=== PATIENT | male | born 1945 | race Caucasian/White ===

== ENCOUNTER 2016-05-02 07:08 | Day surgery (SDC) | payer OTHER ==
--- NOTE | ~2016-05-02 | OP ---
Record Of Operation [facility] [address] [place]. [address] NAME: PANDA UGALDE : 47 STATUS : [place] [facility] [place] [id number] AGE: 70 ADM/REG DATE : 05/02/16 MR#: [id number] REPORT SERV DATE: 05/02/16 DICTATED BY: DENNIS MANCERA DATE: 05/02/16 REPORT STATUS : Draft TRANSCRIBED BY: MODL DATE: 05/02/16 DATE OF PROCEDURE: 05/02/2016 PROCEDURE: Bronchoscopy. PREPROCEDURE DIAGNOSIS: Persistent right middle lobe consolidation. POSTPROCEDURE DIAGNOSIS: Persistent right middle lobe consolidation. SPECIMENS: Right middle lobe BAL for culture and cytology, right middle lobe brushing for pathology and right middle lobe transbronchial biopsy for pathology and culture. DESCRIPTION: Informed consent obtained both verbal and written from the patient. Risks and side effects discussed and all questions answered. The patient was brought to the endoscopy suite and sedated via anesthesia with an LMA airway in place. Fiberoptic scope was inserted through the LMA into the LMA with. I was able to see the vocal cords which moved and appeared normal. Lidocaine injected over the cords to reduce coughing. The scope was inserted into the airway to visualize the upper, middle, and lower portions of the trachea which were normal. Lizeth normal. Left and right bronchial trees were surveyed with all segments open of every lobe and they were free from any endobronchial lesion or abnormality. There were no mucosal irregularities. Using fluoroscopy, we directed our attention to the right middle lobe, and got transbronchial biopsies in the right middle lobe, both the medial and lateral segments. Two specimens were sent for culture and for AFB and fungus and the rest were sent for pathology. Right middle lobe brushing also obtained using fluoro for pathology and BAL from the right middle lobe with specimen sent for both culture and cytology. The patient tolerated the procedure well without any significant complications. Nose bleeding less than 5 mL. Postprocedure chest x-ray is pending. The patient will follow up in our office to go over procedure results. CEP/VASILIY Dennis Mancera DO / [id number] CC: DO Miguelangel Norton III, D.O. Chad E. Paxson, DO
[~2016-05-02 07:08] MED LIST: CLA1000 MG PO; CO Q-1030 MG PO; DIOVAN HCT320 MG/25 PO; FLONASE NAS; LIPITOR10 PO; MSM500 MG PO; MULTI-VIT HP PO; PROTEIN POWDER PO; SAMOLINIC PO; SPIRULINA500 MG PO; VITC500 PO; WHEAT GRASS PO; [UNRECOGNIZED DRUG - OTHER] PO; [UNRECOGNIZED DRUG - OTHER] PO; [UNRECOGNIZED DRUG - OTHER] PO
[2016-05-02 07:32] LABS: BASOPHILS 0.3 %; BASOPHILS ABSOLUTE 0.02 10/3/uL (0.0-0.16); EOSINOPHILS 2.9 %; EOSINOPHILS ABSOLUTE 0.22 10/3/uL (0.0-0.53); HEMATOCRIT 48.8 % (40.0-51.0); HEMOGLOBIN 16.6 g/dL (13.6-17.8); IMMATURE GRANULOCYTES 0.3 %; IMMATURE GRANULOCYTES ABSOLUTE 0.02 10/3/uL (0.0-0.11); LYMPHOCYTES 36.4 %; LYMPHOCYTES ABSOLUTE 2.77 10/3/uL (0.67-4.30); MEAN CORPUSCULAR HEMOGLOB 30.7 pg (26.0-34.0); MEAN CORPUSCULAR VOLUME 90.2 fL (80-100); MEAN PLATELET VOLUME 9.4 fL (9.2-13.0); MONOCYTES 10.4 %; MONOCYTES ABSOLUTE 0.79 10/3/uL (0.21-1.20); NEUTROPHILS 49.7 %; NEUTROPHILS ABSOLUTE 3.79 10/3/uL (2.02-8.40); RBC DISTRIBUTION WIDTH 13.3 % (12.0-16.0); RED CELL COUNT 5.41 10/6/uL (4.7-6.1); WHITE BLOOD CELLS 7.6 10/3/uL (4.5-10.5)
[2016-05-02 07:36] LABS: MANUAL DIFF NO %; PLATELET COUNT 277 10/3/uL (150-400)
[2016-05-02 07:39] LABS: PARTIAL THROMBO TIME 29.8 SEC (22.5-37.2)
[2016-05-02 09:16] LABS: BUN (BLOOD UREA NITROGEN) 15 MG/DL (6-23); CALCIUM, SERUM 8.7 MG/DL (8.5-10.4); CHLORIDE, SERUM 108 MMOL/L (96-112); CO2 (CARBON DIOXIDE) 30 MMOL/L (24-34); CREATININE 1.09 MG/DL (0.70-1.30); GFR AFRICAN AMERICAN 80 ML/MIN (>=60); GFR NON AFRICAN AMERICAN 69 ML/MIN (>=60); GLUCOSE, SERUM 92 MG/DL (60-99); POTASSIUM, SERUM 4.3 MMOL/L (3.5-5.3); SODIUM, SERUM 144 MMOL/L (135-148)
[2016-05-02 13:42] LABS: BD FL LYMPH (NOT ORD) 11 %; BD FL SOURCE (NOT ORD) BAL; BF BASO (NOT OF) 0 %; BF LARGE MONONUCLEAR 81 %; BF TOTAL CELL CT (NOT ORD 279 /MM3; BODY FLUID EOS (NOT ORD) 0 %; BODY FLUID RBC (NOT ORD) 94000 /MM3; BODY FLUID SEG (NOT ORD) 8 %
== END 2016-05-02 23:59 | disposition home or self-care (01) ==
LOC: DMU 07:08
PROVIDERS: Anesthesiology; Internal Medicine Pulmonary Disease
PROC: 0BBD8ZX Excision of Right Middle Lung Lobe, Via Natural or Artificial Opening Endoscopic, Diagnostic (ICD-10-PCS; principal; 2016-05-02 10:00)
DX: C34.2 Malignant neoplasm of middle lobe, bronchus or lung (principal); I10 Essential (primary) hypertension; E78.5 Hyperlipidemia, unspecified; R42 Dizziness and giddiness; Z88.5 Allergy status to narcotic agent; Z79.899 Other long term (current) drug therapy; Z79.51 Long term (current) use of inhaled steroids
CPT/HCPCS: 71010; 80048; 85025; 85610; 85730; 87015; 87070; 87101; 87102; 87116; 87205; 88112; 88305; 89051; 93005; A9270-GY; J2250; J2405; J3010

== ENCOUNTER 2016-05-19 05:58 | Inpatient (IN) | payer OTHER ==
[2016-05-16 13:58] LABS: WBC (NOT ORDERED) (RFLEX) 0 (0-5)
[2016-05-16 14:16] LABS: BASOPHILS 0.4 %; BASOPHILS ABSOLUTE 0.03 10/3/uL (0.0-0.16); EOSINOPHILS 1.3 %; HEMATOCRIT 50.2 % (40.0-51.0); HEMOGLOBIN 17.1 g/dL (13.6-17.8); IMMATURE GRANULOCYTES 0.3 %; IMMATURE GRANULOCYTES ABSOLUTE 0.02 10/3/uL (0.0-0.11); LYMPHOCYTES 17.9 %; LYMPHOCYTES ABSOLUTE 1.35 10/3/uL (0.67-4.30); MEAN CORPUS HGB CONC 34.1 g/dL (32.0-36.0); MEAN CORPUSCULAR HEMOGLOB 30.7 pg (26.0-34.0); MEAN CORPUSCULAR VOLUME 90.1 fL (80-100); MEAN PLATELET VOLUME 9.8 fL (9.2-13.0); MONOCYTES 9.4 %; MONOCYTES ABSOLUTE 0.71 10/3/uL (0.21-1.20); NEUTROPHILS 70.7 %; NEUTROPHILS ABSOLUTE 5.34 10/3/uL (2.02-8.40); PLATELET COUNT 283 10/3/uL (150-400); RBC DISTRIBUTION WIDTH 13.3 % (12.0-16.0); RED CELL COUNT 5.57 10/6/uL (4.7-6.1); WHITE BLOOD CELLS 7.6 10/3/uL (4.5-10.5)
[2016-05-16 14:17] LABS: MANUAL DIFF NO %
[2016-05-16 14:33] LABS: A/G RATIO 1.1 (0.7-1.9); BUN (BLOOD UREA NITROGEN) 17 MG/DL (6-23); CALCIUM, SERUM 9.4 MG/DL (8.5-10.4); CHLORIDE, SERUM 105 MMOL/L (96-112); CO2 (CARBON DIOXIDE) 32 MMOL/L (24-34); CREATININE 1.09 MG/DL (0.70-1.30); GFR AFRICAN AMERICAN 80 ML/MIN (>=60); GFR NON AFRICAN AMERICAN 69 ML/MIN (>=60); GLOBULIN 3.5 G/DL (2.5-4.1); GLUCOSE, SERUM 98 MG/DL (60-99); POTASSIUM, SERUM 4.7 MMOL/L (3.5-5.3); SGOT(AST) 20 U/L (5-40); SGPT(ALT) 33 U/L (5-65); SODIUM, SERUM 142 MMOL/L (135-148); TOTAL BILIRUBIN 0.5 MG/DL (0-1.2); TOTAL PROTEIN 7.5 G/DL (6.0-8.5)
[2016-05-16 14:36] LABS: ALKALINE PHOSPHATASE 77 U/L (45-117)
[2016-05-16 15:52] LABS: ASCORBIC ACID (UR NOT ORDER) 40 (NEG); BILIRUBIN, URINE NEGATIVE (NEG); KETONE, URINE NEGATIVE (NEG); LEUKOCYTE ESTERASE(NOT OR NEG (NEG)
--- NOTE | ~2016-05-19 | OP ---
Record Of Operation [facility] [address] [place]. [address] NAME: PANDA UGALDE : 47 STATUS : ADM IN PAT#: [id number] AGE: 70 ADM/REG DATE : 05/19/16 MR#: [id number] REPORT SERV DATE: 05/19/16 DICTATED BY: REUBEN RODRIGUEZ JR. DATE: 05/19/16 REPORT STATUS : Draft TRANSCRIBED BY: MODL DATE: 05/19/16 DATE OF PROCEDURE: 05/19/2016 PREOPERATIVE DIAGNOSES: Mucinous adenocarcinoma right middle lobe, hypertension, hypercholesterolemia, and previous skin cancer. POSTOPERATIVE DIAGNOSIS: Mucinous adenocarcinoma right middle lobe, hypertension, hypercholesterolemia, and previous skin cancer. NAME OF OPERATION: Bronchoscopy, right thoracoscopy with right middle lobectomy, complete mediastinal node dissection, tino stations 7, 9, 11L, 12 L, and complete intercostal nerve block. SURGEON: Dr. Reuben Rodriguez M.D. RESIDENT SURGEON: Willard Burton MD. WEIGHTER: Krystal Pacheco. ANESTHESIA: General endotracheal. FINDINGS: The patient was noted to have a mucinous filled right middle lobe that was entirely involved with the tumor. There was 1 solid component that was involving the visceral pleura. He had an incomplete minor fissure with a complete major fissure. It is difficult to tell margins given that the tumor and a mucinous component extended up to the visceral surface of the entire right middle lobe. We removed all the structures including emitting down to the main pulmonary artery. It was skeletonized. Additional component of the right upper lobe was taken to ensure adequate margins on that side of the right middle lobe. Given the other fissure was complete, we tried to stay on the right lower lobe site of that fissure. The way to take any more tissue would be to do a completion right pneumonectomy and we did not feel this is indicated in this situation. There were some adhesions in the apex. The 4R lymph nodes were tiny and not taking this and given that they were underneath all these adhesions. DETAILS OF OPERATION: After adequate general anesthesia, the patient was intubated. A bronchoscopy was performed noting no endobronchial lesions. There was no contraindications resection. Left-sided double-lumen endotracheal tube was then placed. The patient was then positioned in the left lateral decubitus position. The right chest was prepped and draped in a routine sterile fashion. A small incision was made overlying the lower intercostal space. A separate anterior trocar incision was also made. Through these two incision sites, the above findings were noted. The chest was explored. Some of the adhesions were taken down with electrocautery. The inferior pulmonary ligament was then divided. The hilar structures were then dissected out. The right middle lobe vein was then transected with a vascular stapler. The bronchus was divided with a JONA stapler. The fissures were partially divided with a JONA stapler. Pulmonary arterial branches were then dissected out and divided with a vascular stapler. We then completed the dissection of the fissures and Record Of Operation [facility] [address] [place]. [address] NAME: PANDA UGALDE : 47 STATUS : ADM IN [facility]#: [id number] AGE: 70 ADM/REG DATE : 05/19/16 MR#: [id number] REPORT SERV DATE: 05/19/16 DICTATED BY: REUBEN RODRIGUEZ JR. DATE: 05/19/16 REPORT STATUS : Draft TRANSCRIBED BY: VASILIY DATE: 05/19/16 stapled with multiple firings of JONA stapler with tissue reinforcements. The specimen was placed in a specimen bag and withdrawn through the anterior trocar site. The hilar structures were completely dissected out such that the pulmonary artery was skeletonized. All the nodes were removed in the hilar region. No other way to take anymore additional lung parenchyma, we would actually take the lower lobe or the upper lobe. A completion pneumonectomy was not advised. Gross inspection of the tumor showed it to be filled with mucin. Final pathology is pending. Nodes from the subcarinal and inferior pulmonary ligament and hilar regions were removed. An intercostal nerve block was performed. A 20- Albanian chest tube was placed. The lung was reinflated. The trocar sites were closed with running Vicryl sutures. The skin was closed with running monofilament suture. A Dermabond dressing was applied and the procedure was terminated at this point. The patient tolerated the procedure well and taken back to the recovery room in stable condition. DE/VASILIY Reuben Rodriguez Jr., M.D. / [id number] CC: Jimbo Teresa Jr., M.D.
[2016-05-19 12:15] LABS: HEMOGLOBIN 14.8 g/dL (13.6-17.8); MEAN CORPUS HGB CONC 34.6 g/dL (32.0-36.0); MEAN CORPUSCULAR HEMOGLOB 30.9 pg (26.0-34.0); MEAN CORPUSCULAR VOLUME 89.4 fL (80-100); MEAN PLATELET VOLUME 9.4 fL (9.2-13.0); PLATELET COUNT 234 10/3/uL (150-400); RBC DISTRIBUTION WIDTH 13.1 % (12.0-16.0); RED CELL COUNT 4.79 10/6/uL (4.7-6.1)
[2016-05-19 12:17] LABS: HEMATOCRIT 42.8 % (40.0-51.0); WHITE BLOOD CELLS 12.6 10/3/uL (4.5-10.5)
[2016-05-19 12:18] LABS: MANUAL DIFF YES %
[2016-05-19 12:28] LABS: CHLORIDE, SERUM 108 MMOL/L (96-112); CREATININE 1.02 MG/DL (0.70-1.30); GFR AFRICAN AMERICAN 87 ML/MIN (>=60); GFR NON AFRICAN AMERICAN 75 ML/MIN (>=60); SODIUM, SERUM 143 MMOL/L (135-148)
[2016-05-19 12:29] LABS: BUN (BLOOD UREA NITROGEN) 21 MG/DL (6-23); CALCIUM, SERUM 7.6 MG/DL (8.5-10.4); CO2 (CARBON DIOXIDE) 26 MMOL/L (24-34); GLUCOSE, SERUM 131 MG/DL (60-99)
[2016-05-19 12:46] LABS: BAND NEUTROPHILS 7 %; BASOPHILS 1 %; BASOPHILS ABSOLUTE (CALC) 0.13 10/3/uL (0.0-0.16); LYMPHOCYTES 4 %; MONOCYTES 3 %; MONOCYTES ABSOLUTE (CALC) 0.38 10/3/uL (0.21-1.20); NEUTROPHILS ABSOLUTE (CALC) 11.59 10/3/uL (2.02-8.40); PLATELET ESTIMATE ADQ (ADEQUATE); RBC MORPHOLOGY NORM (NORMAL); SEGMENTED NEUTROPHIL (0) 85 %; TOTAL NUCLEATED CELLS 100
[2016-05-20 05:59] LABS: BASOPHILS 0.1 %; BASOPHILS ABSOLUTE 0.02 10/3/uL (0.0-0.16); EOSINOPHILS 0.1 %; EOSINOPHILS ABSOLUTE 0.01 10/3/uL (0.0-0.53); HEMATOCRIT 38.8 % (40.0-51.0); HEMOGLOBIN 13.1 g/dL (13.6-17.8); IMMATURE GRANULOCYTES 0.2 %; IMMATURE GRANULOCYTES ABSOLUTE 0.03 10/3/uL (0.0-0.11); LYMPHOCYTES 9.2 %; LYMPHOCYTES ABSOLUTE 1.24 10/3/uL (0.67-4.30); MEAN CORPUS HGB CONC 33.8 g/dL (32.0-36.0); MEAN CORPUSCULAR HEMOGLOB 30.3 pg (26.0-34.0); MEAN CORPUSCULAR VOLUME 89.6 fL (80-100); MEAN PLATELET VOLUME 9.5 fL (9.2-13.0); MONOCYTES 13.7 %; MONOCYTES ABSOLUTE 1.85 10/3/uL (0.21-1.20); NEUTROPHILS 76.7 %; NEUTROPHILS ABSOLUTE 10.32 10/3/uL (2.02-8.40); PLATELET COUNT 217 10/3/uL (150-400); RBC DISTRIBUTION WIDTH 13.5 % (12.0-16.0); RED CELL COUNT 4.33 10/6/uL (4.7-6.1); WHITE BLOOD CELLS 13.5 10/3/uL (4.5-10.5)
[2016-05-20 06:00] LABS: MANUAL DIFF NO %
[2016-05-20 06:13] LABS: BUN (BLOOD UREA NITROGEN) 22 MG/DL (6-23); CALCIUM, SERUM 7.6 MG/DL (8.5-10.4); CHLORIDE, SERUM 105 MMOL/L (96-112); CO2 (CARBON DIOXIDE) 24 MMOL/L (24-34); GFR AFRICAN AMERICAN 59 ML/MIN (>=60); GFR NON AFRICAN AMERICAN 51 ML/MIN (>=60); GLUCOSE, SERUM 137 MG/DL (60-99); SODIUM, SERUM 139 MMOL/L (135-148)
[2016-05-20] MEDS ORDERED: PCET PO (14:19)
== END 2016-05-20 17:38 | disposition home or self-care (01) | DRG 164 ==
LOC: SDC/OF 05:58 → PACU 11:57 → 5NO 15:45
PROVIDERS: Thoracic Surgery (Cardiothoracic Vascular Surgery)
PROC: 3E0T3CZ (ICD-10-PCS; 2016-05-19)
PROC: 0BTD4ZZ Resection of Right Middle Lung Lobe, Percutaneous Endoscopic Approach (ICD-10-PCS; principal; 2016-05-19 08:15)
PROC: 07B74ZX Excision of Thorax Lymphatic, Percutaneous Endoscopic Approach, Diagnostic (ICD-10-PCS; 2016-05-19 08:15)
DX: C34.2 Malignant neoplasm of middle lobe, bronchus or lung (principal); J95.811 Postprocedural pneumothorax; I10 Essential (primary) hypertension; E78.5 Hyperlipidemia, unspecified; T81.82XA Emphysema (subcutaneous) resulting from a procedure, initial encounter; Y83.6 Removal of other organ (partial) (total) as the cause of abnormal reaction of the patient, or of later complication, without mention of misadventure at the time of the procedure; Y92.238 Other place in hospital as the place of occurrence of the external cause; Z85.828 Personal history of other malignant neoplasm of skin; Z85.46 Personal history of malignant neoplasm of prostate
CPT/HCPCS: 36415; 71010; 71020; 80048; 80053; 81001; 82962; 83036; 85025; 85610; 86850; 86900; 86901; 87641; 88305; 88307; 88309; 88313; 93005; 94640; A9270-GY; G0463; J0690; J2250; J2405; J2710; J2795; J3010